=== PATIENT | male | born 1945 | race Caucasian/White ===

== ENCOUNTER 2023-05-28 08:56 | Day surgery (SDC) | payer OTHER ==
[~2023-05-28] VITALS: Ht 177.8 cm; Wt 123.8 kg
[~2023-05-28 08:56] MED LIST: ASPI81TA26 PO; ATOR1TAB21 PO; CEFUROXIME 1MG/0.1ML INTRACAMERAL INJ As Ordered ONE; CYCLOPENTOLATE 1% OPHTH SOLN 2ML BTL OS SCH; FLURBIPROFEN 0.03% OPHTH SOLN 2.5 ML OS SCH; LEVO75TA4 PO; LIDOCAINE 1% SDV 5ML VIAL As Ordered ONE; LR 1,000 ML IV SCH; METO1TAB33 PO; PHENYLEPHRINE 2.5% OPHTH SOL 2ML OS SCH; SELE200T10 PO; TETRACAINE 0.5% OPHTH SOLN 4ML OS SCH
[2023-05-28] MEDS ORDERED: MIDAZOLAM INJ 2MG/2ML VIAL As Ordered ONE (09:51)
[2023-05-28] MEDS ORDERED: DUOVISC (0.50ML VISCOAT/0.85ML PROVISC) OPHTH KIT As Ordered ONE (11:38)
[2023-05-28] MEDS ORDERED: fentaNYL 100 MCG/2 ML INJECTION As Ordered ONE (11:59)
[2023-05-28] MEDS ORDERED: PROVISC 10 MG/ML 0.85ML SYRINGE As Ordered ONE (12:16)
[2023-05-28 12:50] VITALS: BP 141/79; TEMP 97.3; O2SAT 95
== END 2023-05-28 13:30 | disposition home or self-care (01) ==
LOC: M SDC 08:56
PROVIDERS: ATTEND Ophthalmology
DX: H25.12 Age-related nuclear cataract, left eye (principal); I10 Essential (primary) hypertension; E78.5 Hyperlipidemia, unspecified; Z95.0 Presence of cardiac pacemaker; G47.33 Obstructive sleep apnea (adult) (pediatric); Z79.82 Long term (current) use of aspirin; Z79.899 Other long term (current) drug therapy
CPT/HCPCS: 66984; A4649; J0697; J2250; J3010; V2788